=== PATIENT | male | born 1965 | race Caucasian/White ===

== ENCOUNTER → 2021-05-02 | Outpatient (CLI) | payer OTHER | LOC: RAD 08:23 | DX: M75.121 Complete rotator cuff tear or rupture of right shoulder, not specified as traumatic (principal); M19.011 Primary osteoarthritis, right shoulder; S43.431A Superior glenoid labrum lesion of right shoulder, initial encounter; M25.811 Other specified joint disorders, right shoulder; X58.XXXA Exposure to other specified factors, initial encounter | CPT/HCPCS: 73040; 73201; Q9967 ==

== ENCOUNTER → 2021-07-29 | Outpatient (CLI) | payer OTHER ==
[~2021-07-29] MED LIST: DEXILANT60 MG PO; DIAZEPAM5 MG PO; DICLOFENAC SODI75 MG PO; FAMOTIDINE40 MG PO; LOSARTAN; METHOCARBAMOL500 MG PO; OXYCODONE-ACET1 EACH PO; TESTOSTERO200 MG/1 M IM
[2021-07-29 09:47] LABS: BUN/CREATININE RATIO 12 (0-10)
== END ==
LOC: EDSTATUS 08:00 → OPSV2 08:00
PROVIDERS: Orthopaedic Surgery
DX: Z01.818 Encounter for other preprocedural examination (principal)
CPT/HCPCS: 80048; 93005

== ENCOUNTER → 2021-08-08 | Outpatient (CLI) | payer OTHER ==
[2021-08-08 07:52] LABS: BUN/CREATININE RATIO 11 (0-10)
== END ==
LOC: LAB 06:25
PROVIDERS: Orthopaedic Surgery
DX: Z01.812 Encounter for preprocedural laboratory examination (principal)
CPT/HCPCS: 36415; 80048; 86850; 86900; 86901

== ENCOUNTER → 2021-08-09 | Day surgery (SDC) | payer OTHER | END | disposition home or self-care (01) | LOC: OR 06:31 | DX: M19.011 Primary osteoarthritis, right shoulder (principal); S43.431A Superior glenoid labrum lesion of right shoulder, initial encounter; M75.101 Unspecified rotator cuff tear or rupture of right shoulder, not specified as traumatic; G89.18 Other acute postprocedural pain; I10 Essential (primary) hypertension; K21.9 Gastro-esophageal reflux disease without esophagitis; Z87.891 Personal history of nicotine dependence; Z88.8 Allergy status to other drugs, medicaments and biological substances; Z79.899 Other long term (current) drug therapy; Z20.822 Contact with and (suspected) exposure to COVID-19; X58.XXXA Exposure to other specified factors, initial encounter | CPT/HCPCS: 73020; J0592; J0690; J1100; J1200; J1885; J2250; J2370; J2405; J2550; J2704; J2710; J2795; J3010; J3475; J7120 ==

== ENCOUNTER → 2021-11-26 | Outpatient (CLI) | payer OTHER | LOC: LAB 16:52 | DX: M25.519 Pain in unspecified shoulder (principal); Z96.619 Presence of unspecified artificial shoulder joint | CPT/HCPCS: 36415; 85652; 86140 ==

== ENCOUNTER → 2021-12-02 | Outpatient (CLI) | payer OTHER | LOC: CT 14:39 → KOH-I 12-04 09:00 | DX: Z03.89 Encounter for observation for other suspected diseases and conditions ruled out (principal) | CPT/HCPCS: 73200 ==

== ENCOUNTER → 2022-02-04 | Outpatient (CLI) | payer OTHER ==
[~2022-02-04] MED LIST changes: +LOSARTAN POTASS50 MG PO; +LOW DOSE ASPIRI81 MG PO; +PERCOCET 10-321 EACH PO; +SAW PALMETTO160 MG PO; +VALIUM10 MG PO; +VOLTAREN EC 7575 MG PO
[2022-02-04 09:52] LABS: HEMOGLOBIN 15.1 gm/dl (14.0-17.5); RED BLOOD COUNT 4.7 M/UL (4.20-5.50); WHITE BLOOD COUNT 6.4 K/UL (4.5-11.0)
[2022-02-04 10:17] LABS: BUN/CREATININE RATIO 12 (0-10)
== END ==
LOC: EDSTATUS 08:00 → OPSV2 08:00
PROVIDERS: Anesthesiology
DX: Z01.818 Encounter for other preprocedural examination (principal)
CPT/HCPCS: 36415; 80048; 85025; 93005

== ENCOUNTER → 2022-02-13 | Outpatient (CLI) | payer OTHER ==
[~2022-02-13] MED LIST changes: +CELEBREX200 MG PO; +ST. JOHN'S WOR300 M1 PO
[2022-02-13 11:36] LABS: BUN/CREATININE RATIO 8 (0-10)
== END ==
LOC: LAB 10:47
PROVIDERS: Orthopaedic Surgery
DX: Z01.812 Encounter for preprocedural laboratory examination (principal)
CPT/HCPCS: 36415; 80048; 86850; 86900; 86901

== ENCOUNTER 2022-02-14 06:48 | Inpatient (IN) | payer OTHER ==
[~2022-02-14] VITALS: Ht 182.9 cm; Wt 104.3 kg
[~2022-02-14 06:48] MED LIST changes: -CELEBREX200 MG PO; -ST. JOHN'S WOR300 M1 PO
[2022-02-14] MEDS ORDERED: ST. JOHN'S WOR300 M1 PO (17:02)
[2022-02-14] MEDS ORDERED: CELEBREX200 MG PO (17:05)
[2022-02-15 02:46] LABS: HEMOGLOBIN 13.3 gm/dl (14.0-17.5); RED BLOOD COUNT 4.15 M/UL (4.20-5.50); WHITE BLOOD COUNT 13.6 K/UL (4.5-11.0)
[2022-02-15 03:11] LABS: BUN/CREATININE RATIO 14 (0-10)
[2022-02-18 15:04] LABS: BUN/CREATININE RATIO 12 (0-10)
[2022-02-19] MEDS ORDERED: VANCOMYCIN1.25 GM/12 IV (14:30)
[2022-02-19] MEDS ORDERED: ROCEPHIN 2 GM AD2 GM IV (14:30)
== END 2022-02-19 18:37 | disposition home or self-care (01) | DRG 497 ==
LOC: OR 06:48 → M/S 06:48 → EDSTATUS 09:00 → OR 09:00 → M/S 14:32 → OR 02-16 11:38 → M/S 02-16 11:39 → OR 02-17 13:55 → M/S 02-17 13:55
PROVIDERS: Physician Assistant; ADMIT Orthopaedic Surgery
PROC: 0RHJ08Z Insertion of Spacer into Right Shoulder Joint, Open Approach (ICD-10-PCS; 2022-02-14)
PROC: 0RPJ0JZ Removal of Synthetic Substitute from Right Shoulder Joint, Open Approach (ICD-10-PCS; principal; 2022-02-14 10:20)
PROC: 02HV33Z Insertion of Infusion Device into Superior Vena Cava, Percutaneous Approach (ICD-10-PCS; 2022-02-17)
PROC: B548ZZA Ultrasonography of Superior Vena Cava, Guidance (ICD-10-PCS; 2022-02-17)
DX: T84.59XA Infection and inflammatory reaction due to other internal joint prosthesis, initial encounter (principal); G89.18 Other acute postprocedural pain; Z20.822 Contact with and (suspected) exposure to COVID-19; Y83.8 Other surgical procedures as the cause of abnormal reaction of the patient, or of later complication, without mention of misadventure at the time of the procedure; G89.29 Other chronic pain; M54.9 Dorsalgia, unspecified; K44.9 Diaphragmatic hernia without obstruction or gangrene; I10 Essential (primary) hypertension; F17.290 Nicotine dependence, other tobacco product, uncomplicated; K21.9 Gastro-esophageal reflux disease without esophagitis; Z90.49 Acquired absence of other specified parts of digestive tract; Z98.890 Other specified postprocedural states; Z79.01 Long term (current) use of anticoagulants; Z79.82 Long term (current) use of aspirin; Z82.0 Family history of epilepsy and other diseases of the nervous system
CPT/HCPCS: 36415; 73020; 80048; 80202; 82550; 82553; 84484; 85027; 86140; 87070; 87075; 87205; 94760; C1713; C1776; J0690; J0696; J1100; J1170; J2001; J2250; J2270; J2370; J2405; J2550; J2704; J2710; J2795; J3010; J3370; J7070

== ENCOUNTER → 2022-03-12 | Outpatient (CLI) | payer OTHER ==
[~2022-03-12] MED LIST changes: +CELEBREX200 MG PO; +ROCEPHIN 2 GM AD2 GM IV; +ST. JOHN'S WOR300 M1 PO; +VANCOMYCIN1.25 GM/12 IV
== END ==
LOC: OPSV 13:28
DX: T84.59XA Infection and inflammatory reaction due to other internal joint prosthesis, initial encounter (principal); M00.9 Pyogenic arthritis, unspecified
CPT/HCPCS: G0463

== ENCOUNTER → 2022-04-25 | Outpatient (CLI) | payer OTHER ==
[~2022-04-25] MED LIST changes: +DOXYCYCLINE HY100 MG PO; +GABAPENTIN300 MG PO; +ROXICODONE TAB 55 MG PO; +ZOFRAN 4 MG TAB4 MG PO
== END ==
LOC: OPSV2 07:36 → EDSTATUS 08:00 → OPSV2 08:00
DX: Z01.818 Encounter for other preprocedural examination (principal)
CPT/HCPCS: 71046

== ENCOUNTER → 2022-04-25 | Outpatient (CLI) | payer OTHER | LOC: KOH-I 10:05 | DX: M19.011 Primary osteoarthritis, right shoulder (principal) | CPT/HCPCS: 73200 ==